=== PATIENT | female | born 1985 | race Caucasian/White ===

== ENCOUNTER 2021-06-03 09:34 | Day surgery (SDC) | payer MEDICAID, SELFPAY ==
[~2021-06-03] VITALS: Ht 162.6 cm; Wt 81.6 kg
[~2021-06-03 09:34] MED LIST: DIPHENHYDRAMINE INJ 50 MG/ML VIAL ONE
[2021-06-03] MEDS ORDERED: ISOVUE-300 (IOPAMIDOL) 100 ML INFUS..BTL IV ONE (09:35)
[2021-06-03] MEDS ORDERED: methylPREDNISolone ACETATE 80 MG/ML IM ONE (09:35)
[2021-06-03] MEDS ORDERED: LIDOCAINE 2%, 20 ML MDV IM ONE (09:35)
[2021-06-03] MEDS ORDERED: BUPIVACAINE /EPINEPHRINE/PF 0.25% 30 ML VIAL INJ ONE (09:35)
[2021-06-03] MEDS ORDERED: NS 1000 ML IV.SOLN IV ONE (09:35)
[2021-06-03] MEDS: MIDAZOLAM HCL 5 MG/5 ML VIAL ONE ×2 (12:26→12:30)
[2021-06-03 17:29] VITALS: BP_SYST 119
== END 2021-06-03 13:00 | disposition home or self-care (01) ==
LOC: SDS 09:34 → SMU 09:44 → SDS 13:00
PROVIDERS: ATTEND Internal Medicine
DX: M47.26 Other spondylosis with radiculopathy, lumbar region (principal); G89.4 Chronic pain syndrome; M51.16 Intervertebral disc disorders with radiculopathy, lumbar region; M79.18 Myalgia, other site; M47.812 Spondylosis without myelopathy or radiculopathy, cervical region; Z79.899 Other long term (current) drug therapy; Z20.822 Contact with and (suspected) exposure to COVID-19
CPT/HCPCS: 36415; 62323; 87426; J1040; J1200; J2001; J2250; J3490; J7030; Q9967; U0003 ×2; 76000

== ENCOUNTER 2022-01-20 07:28 | Day surgery (SDC) | payer MEDICAID ==
[~2022-01-20] VITALS: Ht 162.6 cm; Wt 79.4 kg
[2022-01-20] MEDS ORDERED: IOPAMIDOL 50 ML VIAL IV ONE (07:29)
[2022-01-20] MEDS ORDERED: methylPREDNISolone ACETATE 40 MG/ML IM ONE (07:29)
[2022-01-20] MEDS ORDERED: LIDOCAINE 2%, 20 ML MDV INJ ONE (07:29)
[2022-01-20] MEDS ORDERED: BUPIVACAINE /PF 0.25% 30 ML VIAL INJ ONE (07:29)
[2022-01-20] MEDS ORDERED: MIDAZOLAM HCL 5 MG/5 ML VIAL ONE (08:13)
[2022-01-20] MEDS ORDERED: DIPHENHYDRAMINE INJ 50 MG/ML VIAL ONE (08:14)
[2022-01-20] MEDS ORDERED: fentaNYL CITRATE/PF 100 MCG/2 ML AMP ONE (08:14)
[2022-01-20] MEDS ORDERED: ONDANSETRON HCL 4 MG/2 ML VIAL ONE (10:35)
[2022-01-20 13:46] VITALS: BP_SYST 118
== END 2022-01-20 11:45 | disposition home or self-care (01) ==
LOC: SDS 07:28 → SMU 07:29 → SDS 11:45
PROVIDERS: ATTEND Internal Medicine
DX: M51.16 Intervertebral disc disorders with radiculopathy, lumbar region (principal); M47.26 Other spondylosis with radiculopathy, lumbar region; G89.4 Chronic pain syndrome; Z20.822 Contact with and (suspected) exposure to COVID-19; Z79.899 Other long term (current) drug therapy
CPT/HCPCS: 36415; 62323; U0003; J3490; J1200; J2001; J1030; J2250; J2405; J3010; Q9967; 76000

== ENCOUNTER 2023-01-19 07:35 | Day surgery (SDC) | payer MEDICAID ==
[~2023-01-19] VITALS: Ht 162.6 cm; Wt 74.8 kg
[2023-01-19] MEDS ORDERED: DIPHENHYDRAMINE INJ 50 MG/ML VIAL ONE (08:53)
[2023-01-19] MEDS ORDERED: fentaNYL CITRATE/PF 100 MCG/2 ML AMP ONE (08:53)
[2023-01-19] MEDS ORDERED: ONDANSETRON HCL 4 MG/2 ML VIAL ONE (08:53)
[2023-01-19] MEDS: MIDAZOLAM HCL 5 MG/5 ML VIAL ONE ×3 (09:42→09:47)
[2023-01-19] MEDS ORDERED: NORMAL SALINE 10 ML VIAL ONE (10:00)
[2023-01-19] MEDS ORDERED: methylPREDNISolone ACETATE 40 MG/ML ONE (10:00)
[2023-01-19] MEDS ORDERED: iopamidoL 50 ML VIAL IV ONE (10:00)
[2023-01-19] MEDS ORDERED: LIDOCAINE 2%, 20 ML MDV ONE (10:00)
[2023-01-19 12:33] VITALS: BP_SYST 131; PULSE 67; RESP 17; TEMP 97.9; O2SAT 99
== END 2023-01-19 10:50 | disposition home or self-care (01) ==
LOC: SDS 07:35 → SMU 07:36 → SDS 10:50
PROVIDERS: ATTEND Internal Medicine
DX: M47.26 Other spondylosis with radiculopathy, lumbar region (principal); M54.42 Lumbago with sciatica, left side; M47.812 Spondylosis without myelopathy or radiculopathy, cervical region; M79.18 Myalgia, other site; G89.4 Chronic pain syndrome; Z79.899 Other long term (current) drug therapy
CPT/HCPCS: 62323; J1200; J2001; J1030; J2250; J3010; Q9967; 76000; J2405

== ENCOUNTER 2023-05-25 09:00 | Outpatient (CLI) | payer MEDICAID ==
[~2023-05-25] VITALS: Ht 162.6 cm; Wt 77.1 kg
== END 2023-05-25 16:30 | disposition home or self-care (01) ==
LOC: SLB 09:00 → SMU 09:02 → SDS 09:02 → EDSTATUS 11:30 → SLB 16:30
PROVIDERS: ATTEND Internal Medicine
DX: M51.86 Other intervertebral disc disorders, lumbar region (principal); M51.9 Unspecified thoracic, thoracolumbar and lumbosacral intervertebral disc disorder; Z20.822 Contact with and (suspected) exposure to COVID-19; Z53.8 Procedure and treatment not carried out for other reasons
CPT/HCPCS: 36415

== ENCOUNTER 2023-06-22 07:41 | Day surgery (SDC) | payer MEDICAID ==
[~2023-06-22] VITALS: Ht 162.6 cm; Wt 77.1 kg
[2023-06-22 08:53] VITALS: O2SAT 99
[2023-06-22] MEDS ORDERED: methylPREDNISolone ACETATE 40 MG/ML ONE ×2 (09:00)
[2023-06-22] MEDS ORDERED: LIDOCAINE 2%, 20 ML MDV ONE (09:00)
[2023-06-22] MEDS ORDERED: NORMAL SALINE 10 ML VIAL ONE (09:00)
[2023-06-22] MEDS ORDERED: DIPHENHYDRAMINE INJ 50 MG/ML VIAL ONE (09:23)
[2023-06-22] MEDS: fentaNYL CITRATE/PF 100 MCG/2 ML AMP ONE (11:03)
[2023-06-22] MEDS: MIDAZOLAM HCL 5 MG/5 ML VIAL ONE (11:04)
[2023-06-22 16:28] VITALS: BP_SYST 103; PULSE 81; RESP 16
== END 2023-06-22 11:40 | disposition home or self-care (01) ==
LOC: SDS 07:41 → SMU 07:42 → SDS 11:40
PROVIDERS: ATTEND Internal Medicine
DX: M47.26 Other spondylosis with radiculopathy, lumbar region (principal); M54.42 Lumbago with sciatica, left side; M51.9 Unspecified thoracic, thoracolumbar and lumbosacral intervertebral disc disorder; M47.812 Spondylosis without myelopathy or radiculopathy, cervical region; M79.18 Myalgia, other site; G89.4 Chronic pain syndrome; Z79.899 Other long term (current) drug therapy
CPT/HCPCS: 62323; J1030; J2250; J3010; 76000; J1200; J2001

== ENCOUNTER 2023-10-19 11:02 | Day surgery (SDC) | payer MEDICAID ==
[~2023-10-19] VITALS: Ht 162.6 cm; Wt 72.6 kg
[~2023-10-19 11:02] MED LIST changes: -DIPHENHYDRAMINE INJ 50 MG/ML VIAL ONE; +LIDOCAINE 2%, 20 ML MDV ONE
[2023-10-19] MEDS ORDERED: MIDAZOLAM HCL 5 MG/5 ML VIAL ONE (13:45)
[2023-10-19] MEDS ORDERED: fentaNYL CITRATE/PF 100 MCG/2 ML AMP ONE (13:45)
[2023-10-19] MEDS: fentaNYL CITRATE/PF 100 MCG/2 ML AMP IVP ONE (14:00)
[2023-10-19 14:22] VITALS: O2SAT 97
[2023-10-19 16:30] VITALS: BP_SYST 117; PULSE 110; RESP 7
== END 2023-10-19 14:38 | disposition home or self-care (01) ==
LOC: SDS 11:02 → SMU 11:06 → SDS 14:38
PROVIDERS: ATTEND Internal Medicine
DX: M51.16 Intervertebral disc disorders with radiculopathy, lumbar region (principal); F41.9 Anxiety disorder, unspecified; F32.A Depression, unspecified; Z87.891 Personal history of nicotine dependence; Z88.6 Allergy status to analgesic agent; Z88.8 Allergy status to other drugs, medicaments and biological substances; Z90.710 Acquired absence of both cervix and uterus; Z79.899 Other long term (current) drug therapy
CPT/HCPCS: 62323; J2250; J3010; Q9967; J1010; 76000; J1030; J2001